=== PATIENT | female | born 1970 | race Caucasian/White ===

== ENCOUNTER → 2016-04-30 | Outpatient (CLI) | payer OTHER ==
--- NOTE | 2016-04-30 13:16 | RAD ---
EXAM: Chest 2 views. HISTORY: Chronic obstructive pulmonary disease, smoking history. COMPARISON: None. FINDINGS: Frontal and lateral views of the chest are obtained. Hyperinflation is consistent with chronic obstructive pulmonary disease. There are no confluent infiltrates There is no pneumothorax or pleural effusion. The heart is not enlarged. Changes of instrumented anterior cervical discectomy and fusion are noted. IMPRESSION: 1. Chronic obstructive pulmonary disease. No confluent infiltrates.
== END | disposition home or self-care (01) ==
LOC: RAD 09:52
PROVIDERS: ATTEND Neuromusculoskeletal Medicine, Sports Medicine
DX: J44.9 Chronic obstructive pulmonary disease, unspecified (principal); Z87.891 Personal history of nicotine dependence; M54.32 Sciatica, left side; M54.31 Sciatica, right side; M79.7 Fibromyalgia; F25.8 Other schizoaffective disorders; M19.90 Unspecified osteoarthritis, unspecified site
CPT/HCPCS: 71020

== ENCOUNTER → 2016-05-29 | Outpatient (CLI) | payer OTHER | END | disposition home or self-care (01) | LOC: PF 07:55 | PROVIDERS: ATTEND Neuromusculoskeletal Medicine, Sports Medicine | DX: J44.9 Chronic obstructive pulmonary disease, unspecified (principal); M16.0 Bilateral primary osteoarthritis of hip; M54.32 Sciatica, left side; M54.31 Sciatica, right side; F10.21 Alcohol dependence, in remission; Z98.1 Arthrodesis status | CPT/HCPCS: 94060; 94729 ==

== ENCOUNTER 2017-09-04 15:49 | Emergency (ER) | payer OTHER ==
[2017-09-04 16:09] LABS: BILIRUBIN,URINE NEGATIVE (NEG); CLARITY,URINE CLEAR; COLOR,URINE YELLOW; GLUCOSE,URINE NEGATIVE (NEG); NITRITE,URINE NEGATIVE (NEG); PH,URINE 7.5; PROTEIN,URINE 30 mg/dL (NEG-TRACE)
[2017-09-04 16:11] LABS: URINE HCG POC HCG NEGATIVE (Negative)
[2017-09-04 16:16] LABS: BARBITURATES NEG (NEG); BENZODIAZEPINES NEG (NEG); CANNABINOIDS POS (NEG); COCAINE POS (NEG); METHADONE NEG (NEG); OPIATES NEG (NEG); PHENCYCLIDINE NEG (NEG)
[2017-09-04 16:17] LABS: AMPHETAMINE/METHAMPHETAMINE POS (NEG); ETHANOL, URINE NEG (NEG)
[2017-09-04 16:27] LABS: BACTERIA,URINE MODERATE /HPF (0-FEW); RBC,URINE 0 /HPF (0-2); SQUAMOUS EPITHELIAL CELL,UR MOD /LPF; WBC,URINE >40 /HPF (0-4)
[2017-09-04 17:01] LABS: ADD MAN DIFF? NO
[2017-09-04 17:03] LABS: BASO % 0 % (0-3); EOS % 0 % (0-3); HEMATOCRIT 38.8 % (36.0-47.0); HEMOGLOBIN 13.3 g/dL (12.0-15.5); LYMPH # 0.7 x10^3/uL (1.0-4.8); LYMPH % 7 % (24-48); MEAN CORPUSCULAR HEMOGLOBIN 31 pg (25-35); MEAN CORPUSCULAR HGB CONC 34 g/dL (31-37); MEAN CORPUSCULAR VOLUME 89 fL (79-100); MONO # 1.1 x10^3/uL (0.0-1.1); MONO % 11 % (0-9); NEUT # 8.7 x10^3uL (1.8-7.7); NEUT % 82 % (31-73); PLATELET COUNT 183 x10^3/uL (140-400); RED BLOOD COUNT 4.36 x10^6/uL (3.50-5.40); RED CELL DISTRIBUTION WIDTH 13.6 % (11.5-14.5); WHITE BLOOD COUNT 10.6 x10^3/uL (4.0-11.0)
[2017-09-04 17:15] LABS: ANION GAP 12 (6-14); BLOOD UREA NITROGEN 11 mg/dL (7-20); BUN/CREATININE RATIO 18 (6-20); CARBON DIOXIDE 24 mmol/L (21-32); CHLORIDE 95 mmol/L (98-107); CREATININE 0.6 mg/dL (0.6-1.0); GFR 107.2; GLUCOSE 94 mg/dL (70-99); POTASSIUM 3.5 mmol/L (3.5-5.1); SODIUM 131 mmol/L (136-145)
[2017-09-04 17:17] LABS: ALBUMIN 3.2 g/dL (3.4-5.0); ALK PHOS 62 U/L (46-116); ALT (SGPT) 14 U/L (14-59); AST (SGOT) 21 U/L (15-37); TOTAL BILIRUBIN 0.5 mg/dL (0.2-1.0); TOTAL PROTEIN 6.5 g/dL (6.4-8.2)
[2017-09-04] MEDS ORDERED: IV NORMAL SALINE 1000ML BAG 1,000 ML IV (18:00)
[2017-09-04] MEDS: cefTRIAXone IM 1 GM VIAL IM (18:08)
== END 2017-09-04 18:10 | disposition home or self-care (01) ==
LOC: ER 15:49
DX: N39.0 Urinary tract infection, site not specified (principal); F14.10 Cocaine abuse, uncomplicated; F15.10 Other stimulant abuse, uncomplicated; M19.90 Unspecified osteoarthritis, unspecified site; F41.9 Anxiety disorder, unspecified; F20.9 Schizophrenia, unspecified; Z88.4 Allergy status to anesthetic agent; Z88.8 Allergy status to other drugs, medicaments and biological substances
CPT/HCPCS: 36415; 80053; 80307; 81001; 81025; 85025; 87086; 93005; 96372; 99285-25; J0696

== ENCOUNTER 2017-09-19 04:29 | Emergency (ER) | payer SELFPAY, OTHER ==
[2017-09-19 05:05] LABS: URINE HCG POC HCG NEGATIVE (Negative)
[2017-09-19 05:05] LABS: BILIRUBIN,URINE NEGATIVE (NEG); CLARITY,URINE CLEAR; COLOR,URINE YELLOW; GLUCOSE,URINE NEGATIVE (NEG); NITRITE,URINE NEGATIVE (NEG); PROTEIN,URINE NEGATIVE (NEG-TRACE); UROBILINOGEN,URINE 0.2 mg/dL (0.2 mg/dL)
[2017-09-19 05:18] LABS: BACTERIA,URINE FEW /HPF (0-FEW); HYALINE CASTS, URINE FEW /HPF; RBC,URINE OCC /HPF (0-2); SQUAMOUS EPITHELIAL CELL,UR FEW /LPF; WBC,URINE OCC /HPF (0-4)
[2017-09-19 05:25] LABS: BARBITURATES NEG (NEG); BENZODIAZEPINES NEG (NEG); CANNABINOIDS POS (NEG); COCAINE NEG (NEG); METHADONE NEG (NEG); OPIATES NEG (NEG); PHENCYCLIDINE NEG (NEG)
[2017-09-19 05:33] LABS: AMPHETAMINE/METHAMPHETAMINE NEG (NEG); ETHANOL, URINE NEG (NEG)
== END 2017-09-19 06:55 | disposition home or self-care (01) ==
LOC: ER 04:29
DX: S16.1XXA Strain of muscle, fascia and tendon at neck level, initial encounter (principal); R51 Headache; M19.90 Unspecified osteoarthritis, unspecified site; F31.9 Bipolar disorder, unspecified; F20.9 Schizophrenia, unspecified; Z88.8 Allergy status to other drugs, medicaments and biological substances; Z88.4 Allergy status to anesthetic agent; Y08.89XA Assault by other specified means, initial encounter; Y93.89 Activity, other specified; Y92.89 Other specified places as the place of occurrence of the external cause; Y99.8 Other external cause status
CPT/HCPCS: 70450; 72125; 80307; 81001; 81025; 99285-25

== ENCOUNTER 2017-09-23 12:42 | Inpatient (IN) | payer SELFPAY ==
[2017-09-23 13:17] LABS: URINE HCG POC HCG NEGATIVE (Negative)
[2017-09-23 13:21] LABS: BILIRUBIN,URINE SMALL (NEG); CLARITY,URINE CLEAR; COLOR,URINE AMBER; GLUCOSE,URINE 250 mg/dL (NEG); NITRITE,URINE NEGATIVE (NEG); PROTEIN,URINE NEGATIVE (NEG-TRACE)
[2017-09-23 13:23] LABS: NEG OBC UR NEG; POS OBC UR POS; U PREG PATIENT NEGATIVE (NEG)
[2017-09-23 13:39] LABS: BACTERIA,URINE FEW /HPF (0-FEW); RBC,URINE 0 /HPF (0-2); SQUAMOUS EPITHELIAL CELL,UR MOD /LPF
[2017-09-23] MEDS: IV NORMAL SALINE 1000ML BAG 1,000 ML IV ×2 (15:22→17:54)
[2017-09-23] MEDS: DIPHTH,PERTUSS(ACELL),TET TOX 0.5 ML DISP.SYRIN. VAX IM (15:24)
[2017-09-23 15:25] LABS: BARBITURATES NEG (NEG); BENZODIAZEPINES NEG (NEG); CANNABINOIDS POS (NEG); COCAINE NEG (NEG); METHADONE NEG (NEG); OPIATES NEG (NEG); PHENCYCLIDINE NEG (NEG)
[2017-09-23 15:27] LABS: BASO % 0 % (0-3); EOS % 0 % (0-3); HEMATOCRIT 38.8 % (36.0-47.0); HEMOGLOBIN 13.2 g/dL (12.0-15.5); LYMPH # 0.6 x10^3/uL (1.0-4.8); LYMPH % 3 % (24-48); MEAN CORPUSCULAR HEMOGLOBIN 31 pg (25-35); MEAN CORPUSCULAR HGB CONC 34 g/dL (31-37); MEAN CORPUSCULAR VOLUME 90 fL (79-100); MONO # 1.1 x10^3/uL (0.0-1.1); MONO % 6 % (0-9); NEUT % 91 % (31-73); PLATELET COUNT 291 x10^3/uL (140-400); RED BLOOD COUNT 4.32 x10^6/uL (3.50-5.40); RED CELL DISTRIBUTION WIDTH 13.9 % (11.5-14.5); WHITE BLOOD COUNT 18.8 x10^3/uL (4.0-11.0)
[2017-09-23 15:28] LABS: ADD MAN DIFF? YES
[2017-09-23 15:31] LABS: AMPHETAMINE/METHAMPHETAMINE POS (NEG); ETHANOL, URINE NEG (NEG)
[2017-09-23 15:41] LABS: ANION GAP 11 (6-14); BLOOD UREA NITROGEN 11 mg/dL (7-20); CALCIUM 8.1 mg/dL (8.5-10.1); CARBON DIOXIDE 26 mmol/L (21-32); CHLORIDE 100 mmol/L (98-107); CREATININE 0.7 mg/dL (0.6-1.0); GFR 89.7; GLUCOSE 91 mg/dL (70-99); POTASSIUM 3.5 mmol/L (3.5-5.1); SODIUM 137 mmol/L (136-145)
[2017-09-23 15:42] LABS: ETHANOL < 10 mg/dL (0-10)
[2017-09-23 15:46] LABS: CREATINE KINASE 99 U/L (26-192)
[2017-09-23 15:53] LABS: LACTIC ACID 1.6 mmol/L (0.4-2.0)
[2017-09-23 15:59] LABS: % BANDS 5 % (0-9); % BASOS 1 % (0-3); % LYMPHS 5 % (24-48); % MONOS 6 % (0-10); % SEGS 83 % (35-66)
[2017-09-23 16:00] LABS: PLT ESTIMATE ADEQUATE (ADEQUATE)
[2017-09-23] MEDS ORDERED: PIP/TAZO PER PHARMACY MC (16:45)
[2017-09-23] MEDS ORDERED: ONDANSETRON PF 4 MG/2 ML VIAL. IV (16:45)
[2017-09-23] MEDS ORDERED: VANCOMYCIN PER PHARMACY MC (16:45)
[2017-09-23] MEDS: PIPERACILLIN/TAZOBACTAM 3.375 GM in IV NORMAL SALINE 50ML 50 ML IV (16:57)
[2017-09-23 16:59] LABS: C-REACTIVE PROTEIN 30.6 mg/L (0-3.3)
[2017-09-23] MEDS: VANCOMYCIN PER PHARMACY MC ×2 (17:47→18:28)
[2017-09-23 17:49] LABS: SEDIMENTATION RATE 5 (0-25)
[2017-09-23] MEDS: VANCOMYCIN 1.5 GM in IV 1/2 NORMAL SALINE 500 ML IV (17:54)
[2017-09-24] MEDS: PIPERACILLIN/TAZOBACTAM 3.375 GM in IV NORMAL SALINE 50ML 50 ML IV ×4 (00:13→18:06)
[2017-09-24] MEDS: IV NORMAL SALINE 1000ML BAG 1,000 ML IV ×3 (00:14→12:45)
[2017-09-24] MEDS: MORPHINE SULFATE 4 MG/ML DISP.SYRIN. IV ×2 (00:22→06:31)
[2017-09-24 03:49] LABS: ADD MAN DIFF? NO
[2017-09-24 03:55] LABS: BASO % 0 % (0-3); EOS % 0 % (0-3); HEMATOCRIT 32.6 % (36.0-47.0); HEMOGLOBIN 11.2 g/dL (12.0-15.5); LYMPH # 0.9 x10^3/uL (1.0-4.8); LYMPH % 5 % (24-48); MEAN CORPUSCULAR HEMOGLOBIN 31 pg (25-35); MEAN CORPUSCULAR HGB CONC 34 g/dL (31-37); MEAN CORPUSCULAR VOLUME 90 fL (79-100); MONO # 1.2 x10^3/uL (0.0-1.1); MONO % 6 % (0-9); NEUT % 89 % (31-73); PLATELET COUNT 199 x10^3/uL (140-400); RED BLOOD COUNT 3.63 x10^6/uL (3.50-5.40); RED CELL DISTRIBUTION WIDTH 14.1 % (11.5-14.5); WHITE BLOOD COUNT 19.1 x10^3/uL (4.0-11.0)
[2017-09-24 04:17] LABS: ANION GAP 13 (6-14); BLOOD UREA NITROGEN 11 mg/dL (7-20); CALCIUM 7.1 mg/dL (8.5-10.1); CARBON DIOXIDE 22 mmol/L (21-32); CHLORIDE 102 mmol/L (98-107); CREATININE 0.9 mg/dL (0.6-1.0); GFR 67.1; GLUCOSE 86 mg/dL (70-99); SODIUM 137 mmol/L (136-145)
[2017-09-24 04:37] LABS: POTASSIUM 2.8 mmol/L (3.5-5.1)
[2017-09-24] MEDS: POTASSIUM CHLORIDE 20 MEQ TABLET.ER. PO ×2 (06:14→10:40)
[2017-09-24] MEDS: VANCOMYCIN 1 GM in IV NORMAL SALINE 250ML 250 ML IV (07:08)
[2017-09-24] MEDS ORDERED: ACETAMINOPHEN 325 MG TABLET. PO (10:00)
[2017-09-24] MEDS ORDERED: traMADol 50 MG TABLET PO (10:30)
[2017-09-24] MEDS ORDERED: hydrALAZINE 20 MG/ML VIAL. IVP (10:30)
[2017-09-24] MEDS: ACETAMINOPHEN 325 MG TABLET. PO (10:38)
[2017-09-24] MEDS ORDERED: HYDROcodone/APAP 5/325MG 1 TAB TABLET PO (10:45)
[2017-09-24 10:51] LABS: MAGNESIUM 1.5 mg/dL (1.8-2.4)
[2017-09-24] MEDS: ARIPiprazole 5 MG TABLET PO ×2 (11:30→12:51)
[2017-09-24] MEDS: MAGNESIUM SULFATE 2GM 50 ML IV (12:45)
[2017-09-24] MEDS: MELOXICAM 7.5 MG TABLET PO (12:50)
[2017-09-24] MEDS: DIVALPROEX DELAYED RELEASE 500 MG TABLET.DR. PO (12:51)
[2017-09-24] MEDS: VANCOMYCIN PER PHARMACY MC (13:30)
[2017-09-24] MEDS: ONDANSETRON PF 4 MG/2 ML VIAL. IV (15:29)
[2017-09-24] MEDS: ENOXAPARIN 40 MG/0.4 ML SYRINGE. SQ (15:29)
[2017-09-24] MEDS: MORPHINE SULFATE 2 MG/ML DISP.SYRIN. IV (15:30)
[2017-09-24] MEDS: DOCUSATE SODIUM 100 MG CAPSULE. PO (18:06)
[2017-09-24] MEDS ORDERED: traZODone 100 MG TABLET. PO (21:00)
[2017-09-24] MEDS ORDERED: LACTOBACILLUS RHAMNOSUS GG 1 CAPSULE. PO (21:00)
[2017-09-24] MEDS ORDERED: CYCLOBENZAPRINE 10 MG TABLET. PO (21:00)
[2017-09-25] MEDS ORDERED: fentaNYL PF VIAL 100 MCG/2 ML VIAL IV ×2 (07:00)
[2017-09-25] MEDS ORDERED: ONDANSETRON PF 4 MG/2 ML VIAL. IV (07:00)
[2017-09-25] MEDS ORDERED: MORPHINE SULFATE 2 MG/ML DISP.SYRIN. IV (07:00)
[2017-09-25] MEDS ORDERED: PROCHLORPERAZINE 10 MG/2 ML VIAL. IV (07:00)
[2017-09-25] MEDS ORDERED: LIDOCAINE 1% PF 2 ML VIAL. ID (07:00)
[2017-09-25] MEDS ORDERED: IV RINGERS,LACTATED 1000ML 1,000 ML IV (07:00)
== END 2017-09-24 20:05 | disposition left against medical advice (07) | DRG 603 ==
LOC: ER 12:42 → 6 SOUTH 17:00
PROVIDERS: Internal Medicine
DX: L03.114 Cellulitis of left upper limb (principal); F41.9 Anxiety disorder, unspecified; F31.9 Bipolar disorder, unspecified; F12.90 Cannabis use, unspecified, uncomplicated; F17.200 Nicotine dependence, unspecified, uncomplicated; M79.7 Fibromyalgia; G40.909 Epilepsy, unspecified, not intractable, without status epilepticus; F20.9 Schizophrenia, unspecified; M19.90 Unspecified osteoarthritis, unspecified site; L98.499 Non-pressure chronic ulcer of skin of other sites with unspecified severity; F15.10 Other stimulant abuse, uncomplicated; E83.42 Hypomagnesemia; E87.6 Hypokalemia; R29.6 Repeated falls; F15.129 Other stimulant abuse with intoxication, unspecified; Z82.49 Family history of ischemic heart disease and other diseases of the circulatory system; Z88.8 Allergy status to other drugs, medicaments and biological substances; Z90.721 Acquired absence of ovaries, unilateral; Z59.0 Homelessness
CPT/HCPCS: 36415; 73080; 80048; 80307; 81001; 81025; 82550; 83605; 83735; 85007; 85025; 85651; 86140; 87040; 90471; 90715; 96361; 96365; 96367; 99285; 99285-25; G0480; J1650; J2270; J2405; J2543; J3370; J3475; J7030; J7050

== ENCOUNTER 2017-09-25 10:24 | Inpatient (IN) | payer SELFPAY ==
[2017-09-25 11:36] LABS: BASO % 0 % (0-3); EOS # 0.1 x10^3/uL (0.0-0.7); EOS % 0 % (0-3); HEMATOCRIT 36.9 % (36.0-47.0); HEMOGLOBIN 12.2 g/dL (12.0-15.5); LYMPH # 0.6 x10^3/uL (1.0-4.8); LYMPH % 4 % (24-48); MEAN CORPUSCULAR HEMOGLOBIN 30 pg (25-35); MEAN CORPUSCULAR HGB CONC 33 g/dL (31-37); MEAN CORPUSCULAR VOLUME 91 fL (79-100); MONO # 0.8 x10^3/uL (0.0-1.1); MONO % 5 % (0-9); NEUT # 14.1 x10^3uL (1.8-7.7); NEUT % 90 % (31-73); PLATELET COUNT 198 x10^3/uL (140-400); RED BLOOD COUNT 4.06 x10^6/uL (3.50-5.40); WHITE BLOOD COUNT 15.7 x10^3/uL (4.0-11.0)
[2017-09-25 11:43] LABS: ADD MAN DIFF? YES
[2017-09-25 11:59] LABS: ANION GAP 12 (6-14); BLOOD UREA NITROGEN 9 mg/dL (7-20); BUN/CREATININE RATIO 10 (6-20); CALCIUM 8.2 mg/dL (8.5-10.1); CARBON DIOXIDE 21 mmol/L (21-32); CHLORIDE 100 mmol/L (98-107); CREATININE 0.9 mg/dL (0.6-1.0); GFR 67.1; GLUCOSE 79 mg/dL (70-99); POTASSIUM 3.2 mmol/L (3.5-5.1); SODIUM 133 mmol/L (136-145)
[2017-09-25 12:05] LABS: ALBUMIN/GLOBULIN RATIO 0.7 (1.0-1.7); ALK PHOS 75 U/L (46-116); ALT (SGPT) 35 U/L (14-59); AST (SGOT) 26 U/L (15-37); TOTAL BILIRUBIN 0.6 mg/dL (0.2-1.0); TOTAL PROTEIN 7.2 g/dL (6.4-8.2)
[2017-09-25] MEDS ORDERED: MORPHINE SULFATE 2 MG/ML DISP.SYRIN. IV (12:15)
[2017-09-25] MEDS ORDERED: ACETAMINOPHEN 325 MG TABLET. PO (12:15)
[2017-09-25] MEDS ORDERED: ONDANSETRON PF 4 MG/2 ML VIAL. IV ×2 (12:15→14:00)
[2017-09-25 12:22] LABS: % BANDS 31 % (0-9); % LYMPHS 4 % (24-48); % MONOS 6 % (0-10); % SEGS 59 % (35-66); PLT ESTIMATE ADEQUATE (ADEQUATE)
[2017-09-25 12:23] LABS: TOXIC VACUOLATION PRESENT
[2017-09-25] MEDS ORDERED: VANCOMYCIN 1GM IVPB FOR OMNI 250 ML IV (12:45)
[2017-09-25] MEDS: PIPERACILLIN/TAZOBACTAM 4.5 GM in IV NORMAL SALINE 100ML 100 ML IV (12:45)
[2017-09-25] MEDS ORDERED: PIP/TAZO PER PHARMACY MC (14:00)
[2017-09-25] MEDS ORDERED: KETOROLAC 15 MG/ML VIAL. IV (14:00)
[2017-09-25] MEDS ORDERED: DOCUSATE SODIUM 100 MG CAPSULE. PO (14:00)
[2017-09-25] MEDS ORDERED: VANCOMYCIN 1.75 GM in IV NORMAL SALINE 500ML BAG 500 ML IV (14:00)
[2017-09-25] MEDS: POTASSIUM CHLORIDE 20 MEQ TABLET.ER. PO (15:04)
[2017-09-25] MEDS: VANCOMYCIN 1.5 GM in IV NORMAL SALINE 500ML BAG 500 ML IV (15:05)
[2017-09-25] MEDS: VANCOMYCIN PER PHARMACY MC (16:14)
[2017-09-25] MEDS ORDERED: PIPERACILLIN/TAZOBACTAM 4.5 GM in IV NORMAL SALINE 100ML 100 ML IV (18:00)
[2017-09-25] MEDS: PIPERACILLIN/TAZOBACTAM 3.375 GM in IV NORMAL SALINE 50ML 50 ML IV (19:42)
[2017-09-25] MEDS: IV NORMAL SALINE 1000ML BAG 1,000 ML IV (21:58)
[2017-09-25] MEDS: traZODone 100 MG TABLET. PO (21:59)
[2017-09-25] MEDS: ACETAMINOPHEN 325 MG TABLET. PO (23:01)
[2017-09-26] MEDS: PIPERACILLIN/TAZOBACTAM 3.375 GM in IV NORMAL SALINE 50ML 50 ML IV ×4 (00:19→19:13)
[2017-09-26] MEDS: VANCOMYCIN 750 MG in IV NORMAL SALINE 250ML 250 ML IV ×2 (02:56→15:18)
[2017-09-26 05:27] LABS: ADD MAN DIFF? NO
[2017-09-26 05:34] LABS: BASO % 0 % (0-3); EOS # 0.2 x10^3/uL (0.0-0.7); EOS % 2 % (0-3); HEMATOCRIT 28.9 % (36.0-47.0); HEMOGLOBIN 9.9 g/dL (12.0-15.5); LYMPH # 0.6 x10^3/uL (1.0-4.8); LYMPH % 6 % (24-48); MEAN CORPUSCULAR HEMOGLOBIN 31 pg (25-35); MEAN CORPUSCULAR HGB CONC 34 g/dL (31-37); MEAN CORPUSCULAR VOLUME 91 fL (79-100); MONO # 1.2 x10^3/uL (0.0-1.1); MONO % 11 % (0-9); NEUT % 81 % (31-73); PLATELET COUNT 164 x10^3/uL (140-400); RED BLOOD COUNT 3.19 x10^6/uL (3.50-5.40); RED CELL DISTRIBUTION WIDTH 13.9 % (11.5-14.5); WHITE BLOOD COUNT 11.2 x10^3/uL (4.0-11.0)
[2017-09-26 05:48] LABS: ANION GAP 8 (6-14); BLOOD UREA NITROGEN 8 mg/dL (7-20); CALCIUM 7.5 mg/dL (8.5-10.1); CARBON DIOXIDE 23 mmol/L (21-32); CHLORIDE 109 mmol/L (98-107); CREATININE 0.8 mg/dL (0.6-1.0); GFR 76.9; GLUCOSE 79 mg/dL (70-99); POTASSIUM 3.6 mmol/L (3.5-5.1); SODIUM 140 mmol/L (136-145)
[2017-09-26] MEDS: traMADol 50 MG TABLET PO (06:16)
[2017-09-26] MEDS ORDERED: fentaNYL PF VIAL 100 MCG/2 ML VIAL IV (07:00)
[2017-09-26] MEDS ORDERED: ONDANSETRON PF 4 MG/2 ML VIAL. IV ×2 (07:00→15:15)
[2017-09-26] MEDS ORDERED: LIDOCAINE 1% PF 2 ML VIAL. ID (07:00)
[2017-09-26] MEDS: MELOXICAM 7.5 MG TABLET PO (08:27)
[2017-09-26] MEDS: DIVALPROEX DELAYED RELEASE 500 MG TABLET.DR. PO ×2 (08:48→20:27)
[2017-09-26] MEDS: ARIPiprazole 5 MG TABLET PO (09:00)
[2017-09-26] MEDS ORDERED: fentaNYL PF VIAL 100 MCG/2 ML VIAL ×2 (12:48→13:43)
[2017-09-26] MEDS ORDERED: PROPOFOL 20 ML IV (12:48)
[2017-09-26] MEDS ORDERED: LIDOCAINE 2% PF Vial for OR 5 ML VIAL. (12:48)
[2017-09-26] MEDS ORDERED: NICOTINE 21MG PATCH. TD (13:00)
[2017-09-26] MEDS ORDERED: NICOTINE POLACRILEX 2MG GUM PACKAGE of 12. BC (13:00)
[2017-09-26] MEDS: IV RINGERS,LACTATED 1000ML 1,000 ML IV (13:07)
[2017-09-26] MEDS: VANCOMYCIN PER PHARMACY MC (13:33)
[2017-09-26] MEDS ORDERED: PROCHLORPERAZINE 10 MG/2 ML VIAL. (13:43)
[2017-09-26] MEDS: fentaNYL PF VIAL 100 MCG/2 ML VIAL IV (13:45)
[2017-09-26] MEDS: PROCHLORPERAZINE 10 MG/2 ML VIAL. IV (13:45)
[2017-09-26] MEDS: HEPARIN PF for SUB-Q USE 5,000 UNIT/0.5 ML VIAL. SQ ×2 (14:00→20:24)
[2017-09-26 14:13] LABS: NEG OBC SER NEG; POS OBC SER POS; PREG TEST PT QUAL NEGATIVE (NEG)
[2017-09-26] MEDS ORDERED: DEXAMETHASONE SOD PHOS 20 MG/5 ML VIAL. (14:30)
[2017-09-26] MEDS ORDERED: SEVOFLURANE 31 TO 60 MINUTES. IH (14:30)
[2017-09-26] MEDS ORDERED: ONDANSETRON PF 4 MG/2 ML VIAL. (14:34)
[2017-09-26] MEDS ORDERED: ePHEDrine PF IN SALINE 50 MG/5 ML DISP.SYRIN IV (14:45)
[2017-09-26] MEDS: BUPIVACAINE-EPI 0.25%-1:200000 50 ML VIAL. (14:47)
[2017-09-26] MEDS ORDERED: PHENYLEPHRINE in 0.9% NACL PF 1 MG/10 ML SYRINGE. IV (14:54)
[2017-09-26] MEDS ORDERED: DEXTROSE 50% 25 GM / 50ML DISP.SYRIN. IV (15:15)
[2017-09-26] MEDS ORDERED: oxyCODONE IR 5 MG TABLET PO (15:15)
[2017-09-26] MEDS ORDERED: HYDROcodone/APAP 7.5/325MG 1 TAB TABLET PO ×2 (15:15)
[2017-09-26] MEDS ORDERED: POLYETHYLENE GLYCOL 3350 17 GM PACKET. PO (15:15)
[2017-09-26] MEDS ORDERED: MORPHINE SULFATE 2 MG/ML DISP.SYRIN. (15:19)
[2017-09-26] MEDS: MORPHINE SULFATE 2 MG/ML DISP.SYRIN. IV ×2 (15:23→20:29)
[2017-09-26] MEDS: traZODone 100 MG TABLET. PO (20:27)
[2017-09-26] MEDS: LACTOBACILLUS RHAMNOSUS GG 1 CAPSULE. PO (20:27)
[2017-09-27] MEDS: PIPERACILLIN/TAZOBACTAM 3.375 GM in IV NORMAL SALINE 50ML 50 ML IV ×5 (00:18→23:45)
[2017-09-27] MEDS: traMADol 50 MG TABLET PO ×2 (01:09→18:42)
[2017-09-27] MEDS: VANCOMYCIN 750 MG in IV NORMAL SALINE 250ML 250 ML IV (02:49)
[2017-09-27 03:17] LABS: GFR 76.9
[2017-09-27 03:17] LABS: CREATININE 0.8 mg/dL (0.6-1.0)
[2017-09-27 03:23] LABS: VANC TR 7.3 mcg/mL (10.0-20.0)
[2017-09-27] MEDS: VANCOMYCIN PER PHARMACY MC ×2 (04:34→08:12)
[2017-09-27] MEDS ORDERED: MAGNESIUM HYDROXIDE 2,400 MG/30 ML ORAL.SUSP. PO (06:00)
[2017-09-27] MEDS: HEPARIN PF for SUB-Q USE 5,000 UNIT/0.5 ML VIAL. SQ (06:00)
[2017-09-27] MEDS: ARIPiprazole 5 MG TABLET PO ×2 (08:05→09:00)
[2017-09-27] MEDS: LACTOBACILLUS RHAMNOSUS GG 1 CAPSULE. PO ×2 (08:06→21:03)
[2017-09-27] MEDS: SENNOSIDES/DOCUSATE 8.6/50MG TABLET. PO (08:06)
[2017-09-27] MEDS: DIVALPROEX DELAYED RELEASE 500 MG TABLET.DR. PO ×2 (08:06→21:02)
[2017-09-27] MEDS: MELOXICAM 7.5 MG TABLET PO (08:07)
[2017-09-27] MEDS: KETOROLAC TROMETHAMINE 10 MG TABLET PO (08:12)
[2017-09-27] MEDS: ALPRAZolam 1 MG TABLET PO (11:10)
[2017-09-27] MEDS: methylPREDNISolone 4 MG TABLET. PO ×2 (11:10→21:03)
[2017-09-27] MEDS: VANCOMYCIN 1 GM in IV NORMAL SALINE 250ML 250 ML IV (14:48)
[2017-09-27] MEDS ORDERED: BISACODYL 10 MG SUPP.RECT. PR (16:00)
[2017-09-27] MEDS: PANTOPRAZOLE 40 MG TABLET.DR. PO (16:02)
[2017-09-27] MEDS: ENOXAPARIN 40 MG/0.4 ML SYRINGE. SQ (16:03)
[2017-09-27 17:17] LABS: HEMOGLOBIN 10.2 g/dL (12.0-15.5); MEAN CORPUSCULAR HGB CONC 33 g/dL (31-37)
[2017-09-27 17:27] LABS: TROPONINI < 0.017 ng/mL (0.000-0.055)
[2017-09-27] MEDS: guaiFENesin DM 600/30MG 1 TAB TAB.ER.12H PO (17:32)
[2017-09-27] MEDS: IPRATRPIUM/ALBUTEROL 0.5/2.5MG 3 ML NEBU. NEB (19:46)
[2017-09-27] MEDS: ZOLPIDEM 5 MG TABLET. PO (21:02)
[2017-09-27] MEDS: traZODone 100 MG TABLET. PO (21:02)
[2017-09-27] MEDS: ASPIRIN ENTERIC COATED 325 MG TABLET.DR. PO (21:03)
[2017-09-28] MEDS: ALPRAZolam 1 MG TABLET PO ×2 (00:03→10:42)
[2017-09-28 02:00] LABS: TROPONINI < 0.017 ng/mL (0.000-0.055)
[2017-09-28] MEDS: VANCOMYCIN 1 GM in IV NORMAL SALINE 250ML 250 ML IV ×2 (02:23→14:35)
[2017-09-28] MEDS: traMADol 50 MG TABLET PO (02:24)
[2017-09-28] MEDS: PIPERACILLIN/TAZOBACTAM 3.375 GM in IV NORMAL SALINE 50ML 50 ML IV ×4 (05:50→22:25)
[2017-09-28] MEDS: ARIPiprazole 5 MG TABLET PO (07:10)
[2017-09-28] MEDS: IPRATRPIUM/ALBUTEROL 0.5/2.5MG 3 ML NEBU. NEB ×4 (07:14→20:00)
[2017-09-28] MEDS: PANTOPRAZOLE 40 MG TABLET.DR. PO (07:32)
[2017-09-28] MEDS: guaiFENesin DM 600/30MG 1 TAB TAB.ER.12H PO ×2 (08:16→22:24)
[2017-09-28] MEDS: methylPREDNISolone 4 MG TABLET. PO ×2 (08:17→22:24)
[2017-09-28] MEDS: LACTOBACILLUS RHAMNOSUS GG 1 CAPSULE. PO ×2 (08:17→22:23)
[2017-09-28] MEDS: DIVALPROEX DELAYED RELEASE 500 MG TABLET.DR. PO ×2 (08:19→22:24)
[2017-09-28] MEDS: SENNOSIDES/DOCUSATE 8.6/50MG TABLET. PO (08:24)
[2017-09-28 13:28] LABS: GFR 76.9
[2017-09-28 13:28] LABS: CREATININE 0.8 mg/dL (0.6-1.0)
[2017-09-28] MEDS: VANCOMYCIN PER PHARMACY MC (14:56)
[2017-09-28] MEDS: ENOXAPARIN 40 MG/0.4 ML SYRINGE. SQ (15:42)
[2017-09-28] MEDS: ASPIRIN ENTERIC COATED 325 MG TABLET.DR. PO (22:23)
[2017-09-28] MEDS: ZOLPIDEM 5 MG TABLET. PO (22:23)
[2017-09-28] MEDS: traZODone 100 MG TABLET. PO (22:24)
[2017-09-29 03:03] LABS: ADD MAN DIFF? NO
[2017-09-29 03:26] LABS: VANC TR 17.5 mcg/mL (10.0-20.0)
[2017-09-29] MEDS: VANCOMYCIN 1 GM in IV NORMAL SALINE 250ML 250 ML IV ×2 (03:46→15:19)
[2017-09-29] MEDS: VANCOMYCIN PER PHARMACY MC ×2 (04:02→13:02)
[2017-09-29 05:01] LABS: BASO # 0.1 x10^3/uL (0.0-0.2); BASO % 1 % (0-3); EOS # 0.2 x10^3/uL (0.0-0.7); EOS % 3 % (0-3); HEMATOCRIT 35.4 % (36.0-47.0); HEMOGLOBIN 11.9 g/dL (12.0-15.5); LYMPH # 1.4 x10^3/uL (1.0-4.8); LYMPH % 18 % (24-48); MEAN CORPUSCULAR HEMOGLOBIN 30 pg (25-35); MEAN CORPUSCULAR HGB CONC 34 g/dL (31-37); MEAN CORPUSCULAR VOLUME 90 fL (79-100); MONO # 1.2 x10^3/uL (0.0-1.1); MONO % 15 % (0-9); NEUT # 5.3 x10^3uL (1.8-7.7); NEUT % 64 % (31-73); PLATELET COUNT 253 x10^3/uL (140-400); RED BLOOD COUNT 3.93 x10^6/uL (3.50-5.40); RED CELL DISTRIBUTION WIDTH 14.5 % (11.5-14.5); WHITE BLOOD COUNT 8.2 x10^3/uL (4.0-11.0)
[2017-09-29 05:04] LABS: ANION GAP 7 (6-14); BLOOD UREA NITROGEN 9 mg/dL (7-20); CALCIUM 8.1 mg/dL (8.5-10.1); CARBON DIOXIDE 30 mmol/L (21-32); CHLORIDE 107 mmol/L (98-107); GFR 59.4; GLUCOSE 69 mg/dL (70-99); POTASSIUM 4.1 mmol/L (3.5-5.1); SODIUM 144 mmol/L (136-145)
[2017-09-29] MEDS: PIPERACILLIN/TAZOBACTAM 3.375 GM in IV NORMAL SALINE 50ML 50 ML IV ×4 (05:13→23:49)
[2017-09-29] MEDS: IPRATRPIUM/ALBUTEROL 0.5/2.5MG 3 ML NEBU. NEB ×4 (07:34→19:52)
[2017-09-29] MEDS: ARIPiprazole 5 MG TABLET PO (09:00)
[2017-09-29] MEDS: SENNOSIDES/DOCUSATE 8.6/50MG TABLET. PO (09:37)
[2017-09-29] MEDS: PANTOPRAZOLE 40 MG TABLET.DR. PO (09:37)
[2017-09-29] MEDS: methylPREDNISolone 4 MG TABLET. PO ×2 (09:37→21:15)
[2017-09-29] MEDS: DIVALPROEX DELAYED RELEASE 500 MG TABLET.DR. PO ×2 (09:37→21:15)
[2017-09-29] MEDS: LACTOBACILLUS RHAMNOSUS GG 1 CAPSULE. PO ×2 (09:37→21:14)
[2017-09-29] MEDS: guaiFENesin DM 600/30MG 1 TAB TAB.ER.12H PO ×2 (09:41→21:15)
[2017-09-29] MEDS: ENOXAPARIN 40 MG/0.4 ML SYRINGE. SQ (16:55)
[2017-09-29] MEDS: ZOLPIDEM 5 MG TABLET. PO ×2 (21:00→22:00)
[2017-09-29] MEDS: ASPIRIN ENTERIC COATED 325 MG TABLET.DR. PO (21:14)
[2017-09-29] MEDS: traZODone 100 MG TABLET. PO (21:15)
[2017-09-30] MEDS: PIPERACILLIN/TAZOBACTAM 3.375 GM in IV NORMAL SALINE 50ML 50 ML IV ×5 (01:59→19:53)
[2017-09-30] MEDS: VANCOMYCIN 1 GM in IV NORMAL SALINE 250ML 250 ML IV ×2 (02:40→15:41)
[2017-09-30 04:42] LABS: CREATININE 0.9 mg/dL (0.6-1.0)
[2017-09-30 04:42] LABS: GFR 67.1
[2017-09-30] MEDS: PANTOPRAZOLE 40 MG TABLET.DR. PO ×2 (07:23→09:17)
[2017-09-30] MEDS: IPRATRPIUM/ALBUTEROL 0.5/2.5MG 3 ML NEBU. NEB ×4 (08:37→19:27)
[2017-09-30] MEDS: ARIPiprazole 5 MG TABLET PO (09:00)
[2017-09-30] MEDS ORDERED: HALOPERIDOL LACTATE 5 MG/ML VIAL. IVP (09:00)
[2017-09-30] MEDS: methylPREDNISolone 4 MG TABLET. PO ×2 (09:17→20:33)
[2017-09-30] MEDS: guaiFENesin DM 600/30MG 1 TAB TAB.ER.12H PO ×2 (09:17→20:34)
[2017-09-30] MEDS: DIVALPROEX DELAYED RELEASE 500 MG TABLET.DR. PO ×2 (09:18→20:33)
[2017-09-30] MEDS: LACTOBACILLUS RHAMNOSUS GG 1 CAPSULE. PO ×2 (09:18→20:33)
[2017-09-30] MEDS: SENNOSIDES/DOCUSATE 8.6/50MG TABLET. PO (09:19)
[2017-09-30] MEDS: VANCOMYCIN PER PHARMACY MC (13:17)
[2017-09-30] MEDS: FLUCONAZOLE 100 MG TABLET. PO (15:39)
[2017-09-30] MEDS: ENOXAPARIN 40 MG/0.4 ML SYRINGE. SQ (15:44)
[2017-09-30] MEDS: traMADol 50 MG TABLET PO (15:51)
[2017-09-30] MEDS: traZODone 100 MG TABLET. PO (20:32)
[2017-09-30] MEDS: ASPIRIN ENTERIC COATED 325 MG TABLET.DR. PO (20:34)
[2017-09-30] MEDS: ZOLPIDEM 5 MG TABLET. PO (20:34)
[2017-10-01] MEDS: PIPERACILLIN/TAZOBACTAM 3.375 GM in IV NORMAL SALINE 50ML 50 ML IV ×4 (00:03→17:49)
[2017-10-01] MEDS: VANCOMYCIN 1 GM in IV NORMAL SALINE 250ML 250 ML IV ×2 (02:37→15:00)
[2017-10-01] MEDS: IPRATRPIUM/ALBUTEROL 0.5/2.5MG 3 ML NEBU. NEB ×3 (08:21→16:11)
[2017-10-01] MEDS: SENNOSIDES/DOCUSATE 8.6/50MG TABLET. PO (08:38)
[2017-10-01] MEDS: CYCLOBENZAPRINE 10 MG TABLET. PO (08:38)
[2017-10-01] MEDS: FLUCONAZOLE 100 MG TABLET. PO (08:38)
[2017-10-01] MEDS: ALPRAZolam 1 MG TABLET PO (08:39)
[2017-10-01] MEDS: PANTOPRAZOLE 40 MG TABLET.DR. PO (08:39)
[2017-10-01] MEDS: LACTOBACILLUS RHAMNOSUS GG 1 CAPSULE. PO (08:39)
[2017-10-01] MEDS: DIVALPROEX DELAYED RELEASE 500 MG TABLET.DR. PO (08:40)
[2017-10-01] MEDS: guaiFENesin DM 600/30MG 1 TAB TAB.ER.12H PO (09:00)
[2017-10-01] MEDS: ARIPiprazole 5 MG TABLET PO (09:00)
[2017-10-01] MEDS: methylPREDNISolone 4 MG TABLET. PO (09:00)
[2017-10-01] MEDS: ENOXAPARIN 40 MG/0.4 ML SYRINGE. SQ (16:00)
== END 2017-10-01 18:30 | DRG 854 ==
LOC: ER 10:24 → 5 SOUTH 11:52
PROC: 0MB40ZZ Excision of Left Elbow Bursa and Ligament, Open Approach (ICD-10-PCS; principal; 2017-09-26 13:30)
PROC: 0HBEXZZ Excision of Left Lower Arm Skin, External Approach (ICD-10-PCS; 2017-09-26 13:30)
DX: A41.9 Sepsis, unspecified organism (principal); L03.114 Cellulitis of left upper limb; E44.1 Mild protein-calorie malnutrition; M79.7 Fibromyalgia; M19.90 Unspecified osteoarthritis, unspecified site; F20.9 Schizophrenia, unspecified; F12.90 Cannabis use, unspecified, uncomplicated; F31.9 Bipolar disorder, unspecified; L98.499 Non-pressure chronic ulcer of skin of other sites with unspecified severity; M70.20 Olecranon bursitis, unspecified elbow; F17.210 Nicotine dependence, cigarettes, uncomplicated; E87.6 Hypokalemia; E83.42 Hypomagnesemia; A63.0 Anogenital (venereal) warts; F15.10 Other stimulant abuse, uncomplicated; F41.9 Anxiety disorder, unspecified; K29.70 Gastritis, unspecified, without bleeding; Z90.721 Acquired absence of ovaries, unilateral; Z82.49 Family history of ischemic heart disease and other diseases of the circulatory system
CPT/HCPCS: 36415; 71046; 80048; 80053; 80202; 82565; 84484; 84703; 85007; 85014; 85018; 85025; 87071; 87075; 87102; 93005; 93306; 94640; 94760; 97165-GO; 97535-GO; 99285; 99285-25; A7015; J0780; J1100; J1650; J2001; J2270; J2370; J2405; J2543; J2704; J3010; J3370; J7030; J7040; J7050; J7120; J7509; J7620

== ENCOUNTER → 2019-06-09 | Outpatient (CLI) | payer OTHER ==
[2017-10-01 14:55] VITALS: BP 115/60
[~2019-06-09] MED LIST: ARIP30TA4 PO; CYCL10TA2 PO; DIVA500T2 PO; Fluconazole PO; HYDR-2765 PO; MELO7.5T29 PO; SULF1TAB24 PO; TRAZ-123 PO
--- NOTE | 2019-06-09 13:28 | RAD ---
Impression: 1. Ultrasound-guided core needle left breast biopsy. 2. Left digital diagnostic mammogram. INDICATION: 48-year-old woman with palpable lump in the inferior left breast, recommended for ultrasound-guided core needle biopsy. COMPARISON: Bilateral mammogram and left breast ultrasound of 06/02/2019. TECHNIQUE AND FINDINGS: Informed consent was obtained and an appropriate procedural pause observed. Standard sterile technique, ultrasound guidance and local anesthesia was utilized in directing a 12-gauge biopsy needle from a lateral approach into the inferior left breast in the area of suspected mass and calcifications. We had the patient confirm the area of palpable concern prior to commencing the examination and is correlated with the sonographic finding recommended for biopsy although it was better described as at the 6:00 position 2 cm from the nipple based on her breast positioning at this visit. Using standard sterile technique, ultrasound guidance and local anesthesia, two 12-gauge biopsy samples were obtained of the area of clinical and sonographic interest in the inferior left breast were obtained and a biopsy marker was deployed. Hemostasis was ensured with direct breast compression. Digital postprocedure mammogram showed satisfactory deployment of the S-shaped biopsy marker into heterogeneously dense breast parenchyma. No dominant mass. No postbiopsy hematoma. IMPRESSION: Successful ultrasound-guided left breast core needle biopsy with pathology results pending. An addendum will be issued once pathology results become available. Electronically signed by: Alba Ellis MD (06/09/2019 1:25 PM) [id number]
--- NOTE | 2019-06-11 14:06 | PATHOLOGY ---
[facility] Accession Number: [id number] . 01 Material submitted: . breast - LEFT BREAST, 6:00, 2CMFN. Modifiers: left, 6:00 . 01 Clinical history: . Left breast mass . 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 See comment. (SHA:[facility]; 06/10/2019) S 06/10/2019 1156 Local . 02 Comment: This case is also reviewed by Dr. Regina Ocampo. Immunoperoxidase stain ck5/6 is negative. (SHA:[facility]; 06/10/2019) . 02 Electronically signed: . Tom Stearns MD, Pathologist NPI- [id number] . 01 Gross description: . The specimen is received in formalin, labeled "Estephania Ellis, left breast 6:00 2 cm from nipple". Received are two needle cores of fibrofatty tissue measuring 1.7 x 0.5 x 0.3 cm in aggregate dimensions. The specimen is submitted entirely in cassettes A1 and A2. The cold ischemic time is 3 minutes. The total formalin fixation time is 11 hours and 50 minutes. ([facility]; 06/09/2019) QAC/QAC 06/09/2019 1618 Local . 02 Pathologist provided ICD-10: N60.82 . 02 CPT . 499540, [id number] Specimen Comment: A courtesy copy of this report has been sent to [phone], [phone] Specimen Comment: [id number] Specimen Comment: Report sent to / DR FAM Performed at: 01 [place] [id number] [address] [id number] MD Mayo Bah MD Phone: [phone] Performed at: 02 [place] [id number] [address] [id number] MD Rico Carlos MD Phone: [phone]
== END ==
LOC: US 08:29
PROVIDERS: ATTEND Family Medicine
DX: N63.20 Unspecified lump in the left breast, unspecified quadrant (principal); R92.0 Mammographic microcalcification found on diagnostic imaging of breast
CPT/HCPCS: 19083; 77065; C1713; 19081; 76942